=== PATIENT | female | born 1945 | race Asian ===

== ENCOUNTER 2017-11-02 14:37 | Outpatient (CLI) | payer MEDICARE | END 2017-11-02 14:38 | disposition home or self-care (01) | LOC: BICULT 14:37 | PROVIDERS: ATTEND Internal Medicine | DX: E04.2 Nontoxic multinodular goiter (principal); E07.9 Disorder of thyroid, unspecified | CPT/HCPCS: 76536 ==

== ENCOUNTER 2018-08-22 14:40 | Outpatient (CLI) | payer MEDICARE ==
--- NOTE | 2018-08-22 15:33 | BD ---
EXAM: DEXA bone density examination HISTORY: 73-year-old postmenopausal female for screening COMPARISON: None FINDINGS: L1--bone mineral density 0.731 g/sq cm; T score -2.4 L2--bone mineral density 0.782 g/sq cm; T score -2.2 L3--bone mineral density 0.763 g/sq cm; T score -2.9 L4--bone mineral density 0.802 g/sq cm; T score -2.4 Total L1-L4--bone mineral density 0.771 g/sq cm; T score -2.5 Left femoral neck--bone mineral density0.554; T score -2.7 Total proximal left femur--bone mineral density 0.818; T score -1.0 IMPRESSION: Osteoporosis.
== END 2018-08-22 14:41 | disposition home or self-care (01) ==
LOC: BICMAMMO 14:40
PROVIDERS: ATTEND Internal Medicine
DX: M81.0 Age-related osteoporosis without current pathological fracture (principal)
CPT/HCPCS: 77080

== ENCOUNTER 2019-01-17 08:27 | Outpatient (CLI) | payer MEDICARE ==
--- NOTE | 2019-01-17 09:25 | MMO ---
Bilateral MAMMO Bilat Diag DDI+NIRAV. CLINICAL HISTORY: Patient is 73 years old and is seen for diagnostic exam. The patient has the following family history of breast cancer: sister, premenopausal. The patient has no personal history of cancer. VIEWS: The views performed were: bilateral craniocaudal with tomosynthesis; bilateral mediolateral oblique with tomosynthesis; bilateral mediolateral with tomosynthesis; right craniocaudal spot compression magnification; and right mediolateral spot compression magnification. FILMS COMPARED: The present examination has been compared to prior imaging studies performed at [facility] on 08/09/2006 and 11/19/2014, and at [facility] on 04/27/2009 and 04/08/2011. This study has been interpreted with the assistance of computer-aided detection. MAMMOGRAM FINDINGS: The breasts are heterogeneously dense, which could obscure a lesion on mammography. There are new calcifications with segmental distribution seen in the upper-inner region of the right breast. In the left breast, there are no suspicious masses, calcifications or areas of architectural distortion. IMPRESSION: NEW CALCIFICATIONS IN THE RIGHT BREAST ARE SUSPICIOUS. A STEREOTACTIC BREAST BIOPSY IS RECOMMENDED. RESULTS AND RECOMMENDATIONS DISCUSSED WITH THE PATIENT AND QUESTIONS ANSWERED. THE RESULTS OF THIS EXAM WERE SENT TO THE PATIENT. ACR BI-RADS Category 4 - Suspicious abnormality - biopsy should be considered MAMMOGRAPHY NOTE: 1. A negative mammogram report should not delay a biopsy if a dominant of clinically suspicious mass is present. 2. Approximately 10% to 15% of breast cancers are not detected by mammography. 3. Adenosis and dense breasts may obscure an underlying neoplasm. Reported by: EFRAÍN WRIGHT MD Electonically Signed: [id number]
--- NOTE | 2019-01-17 12:26 | MRI ---
MRI BRAIN WITH AND WITHOUT CONTRAST: Date: 01/17/19 INDICATION: Nonintractable episodic headache. No prior imaging for comparison. FINDINGS: Normal size of ventricular system without evidence of mass effect or midline shift. Small foci of sha ceptibility are seen at the basal ganglia bilaterally, which may be on the basis of basal ganglia lyubov cification. There is no pathologic intra-axial enhancement. Mild scattered white matter signal abnorm alities are present involving each cerebral hemisphere. The visualized skull base flow-voids are rico nt. Sellar contents are unremarkable. Incidental note of atelectatic right maxillary sinus. IMPRESSION: 1. No acute territorial infarction or mass effect. 2. Mild scattered bilateral cerebral hemispheric white matter signal abnormalities which may be on t he basis of mild gliosis from microvascular ischemic disease, vasculitis/vasculopathy. Correlate clin ically. POS: [facility]
[2019-01-17] MEDS ORDERED: Magnevist 469MG/ML 20 ML VIAL ONE (17:02)
== END 2019-01-17 08:28 | disposition home or self-care (01) ==
LOC: BICMRI 08:27
PROVIDERS: ATTEND Internal Medicine
DX: R92.8 Other abnormal and inconclusive findings on diagnostic imaging of breast (principal); R51 Headache
CPT/HCPCS: 70553; 77066; 82565; G0279; A9579

== ENCOUNTER → 2019-01-24 | Day surgery (SDC) | payer MEDICARE ==
--- NOTE | 2019-01-24 08:30 | MMO ---
POSTPROCEDURAL RIGHT MAMMOGRAM: CLINICAL HISTORY: Status post stereotactic biopsy of right breast. FINDINGS: Clip deployment at site of biopsy calcifications of the posterior, medial right breast with interval decrease in number of calcifications, status post biopsy. IMPRESSION: Status post stereotactic biopsy with marking clip placement of the right breast. Transcribed Date/Time: 01/24/2019 9:00 AM
--- NOTE | 2019-01-24 08:31 | MMO ---
Stereotactic Right breast biopsy INDICATION: Right breast calcifications PROCEDURE: Informed consent was obtained and the patient was escorted to the procedural suite, placed in a prone position. Breast was placed into compression. Calcifications of interest were localized utilizing stereotactic imaging. Standard sterile prepping and draping and topical anesthesia with buffered 1% lidocaine was achieved, followed by a small skin incision. A 10-gauge vacuum-assisted stereotactic needle was then advanced to the leading edge of the calcifica tions, confirmed with mammographic imaging. Needle was then deployed. 6 core specimens were then acquired from the site of interest. The specimens were radiographed which did reveal calcifications of interest. Needle was removed. A biopsy marking clip was then advanced to the site of biopsy and a marking clip was deployed. There were no procedural complications. Patient tolerated the procedure well. Patient was transferred to mammography to undergo postprocedural clip placement views. IMPRESSION: Technically successful stereotactic biopsy of right breast, yielding calcifications of in terest. Pathology results are pending. The patient will be notified of the results when they are received. Transcribed Date/Time: 01/24/2019 9:03 AM
== END ==
LOC: MAMMO 06:59
PROVIDERS: ATTEND Internal Medicine
PROC: 0H9T3ZX Drainage of Right Breast, Percutaneous Approach, Diagnostic (ICD-10-PCS; principal; 2019-01-24)
DX: C50.811 Malignant neoplasm of overlapping sites of right female breast (principal)
CPT/HCPCS: 19081; 76098; 88305; 88342

== ENCOUNTER 2019-02-05 15:23 | Outpatient (CLI) | payer MEDICARE ==
--- NOTE | 2019-02-05 16:13 | ULT ---
EXAM: RIGHT AXILLA ULTRASOUND: 02/05/19 HISTORY: Malignant neoplasm of upper inner quadrant of right female breast. FINDINGS: There is a 0.8 x 0.9 x 1.1 cm diameter lymph node demonstrated in the right axilla which appears to b e mostly fatty. No abnormal fluid collection. IMPRESSION: One lymph node demonstrated in the right axilla as above. POS: OFF
== END 2019-02-05 15:24 | disposition home or self-care (01) ==
LOC: BICULT 15:23
PROVIDERS: ATTEND Internal Medicine Hematology & Oncology
DX: C50.211 Malignant neoplasm of upper-inner quadrant of right female breast (principal)
CPT/HCPCS: 76999

== ENCOUNTER 2019-02-18 07:57 | Day surgery (SDC) | payer MEDICARE ==
[2019-02-12 16:41] VITALS: BMI 21.5
[2019-02-18] MEDS ORDERED: ePHEDrine/0.9% NaCl/PF SYRINGE 50 mg/10 ml ONE (09:29)
[2019-02-18] MEDS ORDERED: Dexamethasone 20 MG/5 ML VIAL ONE (09:29)
[2019-02-18] MEDS ORDERED: Rocuronium Bromide 10 MG/ML (10ML VIAL) ONE (09:29)
[2019-02-18] MEDS ORDERED: Ondansetron PF 4 MG/2 ML Vial ONE (09:29)
[2019-02-18] MEDS ORDERED: PROPOFOL 200 MG/20 ML VIAL ONE (09:29)
[2019-02-18] MEDS ORDERED: PHENYLEPHRINE-NS 100 MCG/ML 10 ML SYRINGE ONE (09:29)
[2019-02-18] MEDS ORDERED: Lidocaine 1% PF 5 ML VIAL ONE (09:29)
--- NOTE | 2019-02-18 10:58 | NM ---
NM Lymphoscintigraphy HISTORY: Malignant neoplasm of unspecified site of the right female breast. RADIOPHARMACEUTICAL: 368 uCi of technetium 99m filtered sulfur colloid. Right periareolar injection in divided doses. FINDINGS: There is visualization of multiple lymph nodes in the right axilla. The lymph nodes in the internal mammary chains on either side or in the left axilla are not visualized. IMPRESSION: [place] lymph node(s) in the right axilla.
[2019-02-18] MEDS ORDERED: Lidocaine 1% w/Epinephrine 1:100K 20 ML VIAL ONE (11:05)
[2019-02-18] MEDS ORDERED: Bupivacaine 0.25% HCL 30 ML VIAL ONE (11:05)
[2019-02-18] MEDS ORDERED: Isosulfan Blue 50 MG/5 ML VIAL ONE (11:05)
[2019-02-18] MEDS ORDERED: Fentanyl 100 MCG/2 ML VIAL ONE (11:41)
[2019-02-18] MEDS ORDERED: Ondansetron HCl/PF 4 MG/2 ML Vial IVP PRN (14:46)
[2019-02-18] MEDS ORDERED: Promethazine HCl 25 MG/ML VIAL SLOW IVP PRN (14:46)
[2019-02-18] MEDS ORDERED: Promethazine HCl 25 MG/ML VIAL IM PRN (14:46)
--- NOTE | 2019-02-18 14:50 | MMO ---
RIGHT BREAST NEEDLE LOCALIZATION FOR SURGICAL EXCISION/LUMPECTOMY: FINDINGS: Successful right breast needle localization. Two separate 7.5 cm [place] needles and wires were used to bracket the calcifications as well as the biopsy clip. Approach was via the mediolateral approach. Wires were deployed under mL compression. Images were marked. TECHNIQUE: Consent obtained to perform needle localization to (surgical clips and linear orientation of calcific ations in the right breast. Mediolateral view was deemed appropriate. The skin was prepped and draped in a sterile fashion. Lidocaine 1% buffered with sodium bicarbonate was used for local anesthesia. T wo separate 7.5 cm [place] needles and wires were advanced into the right breast. Needle position was c onfirmed in the lateral projection. The right breast was subsequently put in the CC projection and th e wire was deployed. Wire deployment was also confirmed. The patient tolerated the procedure well. No immediate or post procedure complications. SPECIMEN RADIOGRAPH: Calcifications and clip are present in the radiograph. Findings were conveyed to the OR on 02/18/2019 at 2:21 p.m. CODE CR POS: OFF
[2019-02-18] MEDS ORDERED: HYDROcodone/Acetaminophen 5/325 mg Tablet ONE (16:02)
--- NOTE | 2019-02-18 16:39 | PDOC.OP ---
Operative Note - Operative Note Operative Note: PROCEDURE: Right breast needle localized lumpectomy and sentinel lymph node biopsy SURGEON: Ashlie Barker M.D. 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 The calcifications are in the linear array and the recommendation was made to excise the entire area of new abnormal calcifications. She has several other areas of calcifications which are stable. PROCEDURE IN DETAIL: After informed consent was obtained and mammogram guided needle localization carried out bracketing the area of the calcifications, and lymphoscintigraphy performed, the patient was taken to the operating room and placed in the supine position. General anesthesia was administered and the breast was prepped with alcohol and lymphazurin injected subdermally behind the nipple. The breast was massaged for 5 minutes, and then the patient was positioned, prepped and draped. Local anesthesia was infused to the lower edge of the hairbearing skin of the axilla. The skin was incised and dissection carried down to the area of highest activity by neoprobe. 3 lymph nodes with increased activity were identified and excised and target counts performed. The first one had a target count of and 215 and was small and blue. The second one had a target count of 105 and was slightly enlarged and not blue. The third one was fairly deep under the pectoralis and had a target count 348 and was small and blue. The axilla was examined and palpated and no other palpable abnormal nodes nor areas of increased activity were found. The wound was irrigated and hemostasis verified. Additional local anesthesia was infused for postoperative pain control and the subcutaneous tissues were reapproximated with 3-0 Monocryl suture and the skin closed with 4-0 Monocryl suture. Attention was then turned to the lumpectomy. The 2 wires bracketing the pulmonary area of calcifications were quite deep to the area of concern. I had reviewed the films with the radiologist preoperatively and he recommended pulling back the inferior needle and wire 3.5 cm and the superior needle and wire 1.[address] them around the area of concern. The wire was drawn back into the inferior needle and the needle drawn back 3.5 cm at the skin and the wire redeployed. The wire was drawn back into the superior needle and the needle drawn back 1.5 cm at the skin and the wire redeployed. Local anesthesia was then infused the skin and subcutaneous tissues between the 2 wires. An incision was made between the 2 wires and dissection carried down one and a half to 2 cm along each wire and in the intervening tissue. Flaps were then raised superficial and deep to the area between the 2 wires and dissection carried down beyond the end of the wires. The tissue was superior and inferior to the needles and wire was divided and the specimen removed by dividing the lateral tissue beyond the ends of the 2 wires. The tissue was removed en bloc with the needles and wires intact and unexposed at either end of the biopsy specimen. The specimen was removed and marked for orientation with a long medial, short superior, and looped superficial suture. It was sent for specimen mammogram which showed presence of the clip and linear calcifications within the specimen. The wound was irrigated and hemostasis obtained using Bovie electrocautery. Additional local anesthesia was infused circumferentially for postoperative pain control. The subcutaneous tissues were reapproximated with a running 3-0 Monocryl suture and additional local anesthesia infused into the biopsy cavity. The skin was then closed with a running 4-0 subcuticular Monocryl suture. Dermabond dressings were placed to both incisions and once this was dry, fluffs compression dressings were placed and secured to the skin with tape. The patient was extubated and taken to the recovery room in good condition. Estimated blood loss was minimal. There were no complications. Specimens are sentinel lymph nodes 3 and right medial breast tissue.
== END 2019-02-18 16:30 | disposition home or self-care (01) ==
LOC: SDC 07:57
PROVIDERS: ATTEND Surgery
PROC: 0HBT0ZZ Excision of Right Breast, Open Approach (ICD-10-PCS; principal; 2019-02-18)
PROC: 07B50ZX Excision of Right Axillary Lymphatic, Open Approach, Diagnostic (ICD-10-PCS; 2019-02-18)
DX: C50.311 Malignant neoplasm of lower-inner quadrant of right female breast (principal); E78.5 Hyperlipidemia, unspecified; M81.0 Age-related osteoporosis without current pathological fracture; Z17.0 Estrogen receptor positive status [ER+]; Z79.83 Long term (current) use of bisphosphonates; Z79.899 Other long term (current) drug therapy
CPT/HCPCS: 19281; 19301; 38525; 38900; 76098; 78195; 88307; 88342; A9541; Q9968; J0690; J1100; J2001; J2405; J2704; J3010; S0020

== ENCOUNTER 2020-01-22 08:45 | Outpatient (CLI) | payer MEDICARE ==
--- NOTE | 2020-01-22 09:22 | MMO ---
Bilateral MAMMO Bilat Diag DDI+NIRAV. CLINICAL HISTORY: Patient is 74 years old and is seen for diagnostic exam. The patient has the following family history of breast cancer: sister, premenopausal. The patient has a history of Excisional biopsy procedure revealed invasive ductal right breast carcinoma in February,. The patient has a history of right Lumpectomy in February, - invasive ductal carcinoma and right Stereotatic Biopsy in January, - invasive ductal carcinoma. VIEWS: The views performed were: bilateral craniocaudal with tomosynthesis; bilateral mediolateral oblique with tomosynthesis; and bilateral mediolateral with tomosynthesis. FILMS COMPARED: The present examination has been compared to prior imaging studies performed at [facility] on 11/19/2014, 01/17/2019 and 01/24/2019, and at [facility] on 04/08/2011. This study has been interpreted with the assistance of computer-aided detection. MAMMOGRAM FINDINGS: The breasts are heterogeneously dense, which could obscure a lesion on mammography. There is a post-surgical scar seen in the right breast. Benign calcifications are noted bilaterally. There are no suspicious masses, suspicious calcifications, or new areas of architectural distortion. IMPRESSION: THERE IS NO MAMMOGRAPHIC EVIDENCE OF MALIGNANCY. A ROUTINE FOLLOW-UP MAMMOGRAM IN 1 YEAR IS RECOMMENDED. THE RESULTS OF THIS EXAM WERE SENT TO THE PATIENT. ACR BI-RADS Category 2 - Benign finding MAMMOGRAPHY NOTE: 1. A negative mammogram report should not delay a biopsy if a dominant of clinically suspicious mass is present. 2. Approximately 10% to 15% of breast cancers are not detected by mammography. 3. Adenosis and dense breasts may obscure an underlying neoplasm. Reported by: SHANI MANZANO MD Electonically Signed: [id number]
== END 2020-01-22 08:46 | disposition home or self-care (01) ==
LOC: BICMAMMO 08:45
PROVIDERS: ATTEND Internal Medicine Hematology & Oncology
DX: Z08 Encounter for follow-up examination after completed treatment for malignant neoplasm (principal); Z85.3 Personal history of malignant neoplasm of breast
CPT/HCPCS: 77066; G0279

== ENCOUNTER 2021-01-11 10:23 | Outpatient (CLI) | payer MEDICARE | END 2021-01-11 10:24 | disposition home or self-care (01) | LOC: BICMAMMO 10:23 | PROVIDERS: ATTEND Internal Medicine | DX: Z13.820 Encounter for screening for osteoporosis (principal); M25.551 Pain in right hip; M16.11 Unilateral primary osteoarthritis, right hip; M47.818 Spondylosis without myelopathy or radiculopathy, sacral and sacrococcygeal region; M81.0 Age-related osteoporosis without current pathological fracture; Z78.0 Asymptomatic menopausal state | CPT/HCPCS: 77080 ==

== ENCOUNTER 2021-02-17 09:03 | Outpatient (CLI) | payer MEDICARE | END 2021-02-17 09:04 | disposition home or self-care (01) | LOC: BICMAMMO 09:03 | PROVIDERS: ATTEND Internal Medicine Hematology & Oncology | DX: Z08 Encounter for follow-up examination after completed treatment for malignant neoplasm (principal); Z85.3 Personal history of malignant neoplasm of breast | CPT/HCPCS: 77066; G0279 ==

== ENCOUNTER 2021-07-19 14:33 | Outpatient (CLI) | payer OTHER | END 2021-07-19 14:34 | disposition home or self-care (01) | LOC: BICMAMMO 14:33 | PROVIDERS: ATTEND Surgery | DX: Z08 Encounter for follow-up examination after completed treatment for malignant neoplasm (principal); Z85.3 Personal history of malignant neoplasm of breast | CPT/HCPCS: 76642; 77065; G0279 ==

== ENCOUNTER 2022-05-18 07:56 | Outpatient (CLI) | payer MEDICARE | END 2022-05-18 07:57 | disposition home or self-care (01) | LOC: BICMAMMO 07:56 | PROVIDERS: ATTEND Internal Medicine | DX: Z08 Encounter for follow-up examination after completed treatment for malignant neoplasm (principal); Z13.820 Encounter for screening for osteoporosis; Z85.3 Personal history of malignant neoplasm of breast; M81.0 Age-related osteoporosis without current pathological fracture | CPT/HCPCS: 77066; 77080; G0279 ==

== ENCOUNTER 2022-10-06 15:42 | Outpatient (CLI) | payer MEDICARE | END 2022-10-06 15:43 | disposition home or self-care (01) | LOC: RAD 15:42 | PROVIDERS: ATTEND Internal Medicine | DX: M54.50 Low back pain, unspecified (principal); M54.6 Pain in thoracic spine; R93.5 Abnormal findings on diagnostic imaging of other abdominal regions, including retroperitoneum; M47.814 Spondylosis without myelopathy or radiculopathy, thoracic region; M47.816 Spondylosis without myelopathy or radiculopathy, lumbar region | CPT/HCPCS: 72072; 72100 ==

== ENCOUNTER 2022-10-13 15:47 | Outpatient (CLI) | payer MEDICARE | END 2022-10-13 15:48 | disposition home or self-care (01) | LOC: RAD 15:47 | PROVIDERS: ATTEND Internal Medicine | DX: M79.675 Pain in left toe(s) (principal); R07.81 Pleurodynia; M79.89 Other specified soft tissue disorders ==

== ENCOUNTER 2022-10-26 07:27 | Outpatient (CLI) | payer MEDICARE ==
[2022-10-26] MEDS ORDERED: Iopamidol 370 76% 100 ML VIAL ONE (10:27)
== END 2022-10-26 07:28 | disposition home or self-care (01) ==
LOC: CT 07:27
PROVIDERS: ATTEND Internal Medicine
DX: R93.89 Abnormal findings on diagnostic imaging of other specified body structures (principal); R92.1 Mammographic calcification found on diagnostic imaging of breast
CPT/HCPCS: 74160; 82565

== ENCOUNTER 2023-07-05 10:20 | Outpatient (CLI) | payer MEDICARE | END 2023-07-05 10:21 | disposition home or self-care (01) | LOC: BICMRI 10:20 | PROVIDERS: ATTEND Internal Medicine | DX: M25.561 Pain in right knee (principal); S83.231A Complex tear of medial meniscus, current injury, right knee, initial encounter; M25.461 Effusion, right knee; M71.21 Synovial cyst of popliteal space [Baker], right knee; M23.91 Unspecified internal derangement of right knee ==

== ENCOUNTER 2023-11-30 12:59 | Outpatient (CLI) | payer MEDICARE | END 2023-11-30 13:00 | disposition home or self-care (01) | LOC: BICRAD 12:59 | PROVIDERS: ATTEND Internal Medicine | DX: M25.562 Pain in left knee (principal) ==

== ENCOUNTER 2024-04-08 08:44 | Outpatient (CLI) | payer OTHER | END 2024-04-08 08:45 | disposition home or self-care (01) | LOC: BICMAMMO 08:44 | PROVIDERS: ATTEND Internal Medicine | DX: R92.8 Other abnormal and inconclusive findings on diagnostic imaging of breast (principal); Z85.3 Personal history of malignant neoplasm of breast | CPT/HCPCS: 77066; G0279 ==